=== PATIENT | male | born 2005 | race Caucasian/White ===

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

== ENCOUNTER → 2024-09-07 | Outpatient (CLI) | payer OTHER, SELFPAY ==
[2024-09-07 13:51] LABS: AST(SGOT) 38 U/L (<=37); Alanine Aminotransfer ALT/SGPT 25 U/L (<=46); Cholesterol 118 mg/dL (<=190); Low Density Lipoprotein Calc. 54 mg/dL; Triglycerides 55 mg/dL; Very Low Density Lipoprotein 11 mg/dL (5-40); cholesterol:hdl ratio screen 2.21
[2024-09-08 04:07] LABS: LDL, Direct 120295 58 mg/dL (0-99)
== END | disposition home or self-care (01) ==
LOC: MTLAB 10:12
PROVIDERS: PCP Pediatrics; Referring Provider Physician Assistant Medical; Visit Provider Physician Assistant Medical
DX: L70.0 Acne vulgaris (principal)
CPT/HCPCS: 36415; 80061; 83721; 84450; 84460